=== PATIENT | female | born 1960 | race Caucasian/White ===

== ENCOUNTER 2017-03-12 15:20 | Emergency (ER) | payer OTHER ==
[2017-03-12 15:28] VITALS: BP 133/94
[2017-03-12] MEDS ORDERED: ERYT1OIN6 OP (15:36)
--- NOTE | 2017-03-12 15:36 | PHYS DOC ---
Past History Past Medical History: No Pertinent History Past Surgical History: No Surgical History Alcohol Use: None Drug Use: None Adult General Chief Complaint Chief Complaint: EYE PROBLEMS HPI HPI 56-year-old female presenting to the emergency department today with right eye swelling and redness. Started yesterday. It is improved with a warm cloth on her eye. She notices crusty drainage from the lower part of her eyelid. Location right eye. Duration intermittent. Alleviated by warm cloth. Review of systems is negative for chest pain shortness of breath nausea vomiting. All other review of systems is negative unless otherwise noted in history of present illness. ED course: 56-year-old female presenting with signs and symptoms suggestive of blepharitis. I recommended warm compresses gave her a topical antibiotic ointment to follow-up with her eye doctor today or tomorrow. T They were to return if their symptoms worsened or if they were concerned for any reason. Face -to-face discharge instructions and return precautions were given. Patient's questions were answered to their satisfaction. Patient is comfortable plan. Review of Systems Review of Systems SEE ABOVE. Physical Exam Physical Exam Constitutional: Well developed, well nourished, no acute distress, non-toxic appearance. [] HENT: Normocephalic, atraumatic, bilateral external ears normal, oropharynx moist, no oral exudates, nose normal. [] Eyes: PERRLA, EOMI, conjunctiva normal, no discharge. [] Neck: Normal range of motion, no tenderness, supple, no stridor. [] Cardiovascular:Heart rate regular rhythm, no murmur [] Lungs & Thorax: Bilateral breath sounds clear to auscultation [] Abdomen: Bowel sounds normal, soft, no tenderness, no masses, no pulsatile masses. [] Skin: Warm, dry, no erythema, no rash. [] Back: No tenderness, no CVA tenderness. [] Extremities: No tenderness, no cyanosis, no clubbing, ROM intact, no edema. [] Neurologic: Alert and oriented X 3, normal motor function, normal sensory function, no focal deficits noted. [] Psychologic: Affect normal, judgement normal, mood normal. [] EKG EKG [] Radiology/Procedures Radiology/Procedures [] Course & Med Decision Making Course & Med Decision Making Pertinent Labs and Imaging studies reviewed. (See chart for details) [] Dragon Disclaimer Dragon Disclaimer This chart was dictated in whole or in part using Voice Recognition software in a busy, high-work load, and often noisy Emergency Department environment. It may contain unintended and wholly unrecognized errors or omissions. Departure Departure: Impression: Primary Impression: Blepharitis Disposition: 01 HOME, SELF-CARE Condition: STABLE Referrals: OTTO RIZO MD (PCP) Patient Instructions: Blepharitis Additional Instructions: Thank you for allowing us to participate in your care today. Follow-up with your eye doctor today or tomorrow. If you do not have a primary care provider you can ask for a list of our primary care providers. Return to the emergency department you have any new or concerning findings. This should be evaluated by the primary care physician and any necessary consulting services for continued management within a few days after discharge. Return to emergency room if you have any new or concerning symptoms including but not limited to fever, chills, nausea, vomiting, intractable pain, any new rashes, chest pain, shortness of air, uncontrolled bleeding, difficulty breathing, and/or vision loss. Scripts Erythromycin Base (Erythromycin) 1 Gm Oint...g. 1 GM OP TID for 5 Days, [facility] Prov: DORA REYES MD 03/12/17 DORA REYES MD March 12, 2017 15:36
== END 2017-03-12 15:45 | disposition home or self-care (01) ==
LOC: ER 15:20
DX: H01.002 Unspecified blepharitis right lower eyelid (principal)
CPT/HCPCS: 99283

== ENCOUNTER → 2018-01-02 | Outpatient (CLI) | payer OTHER ==
[~2018-01-02] MED LIST: ERYT1OIN6 OP
--- NOTE | 2018-01-02 11:50 | RAD ---
DATE: 01/02/2018 EXAM: DIGITAL SCREEN BILAT W/CAD HISTORY: Routine screening COMPARISON: 12/19/2016 This study was interpreted with the benefit of Computerized Aided Detection (CAD). The breast parenchyma shows scattered fibroglandular densities. Breast parenchyma level B. FINDINGS: No new or enlarging breast densities are seen. There are benign type calcifications in both breasts. No suspicious microcalcifications have developed. IMPRESSION: Stable mammograms without evidence of malignancy. BI-RADS CATEGORY: 2 BENIGN FINDING(S) RECOMMENDED FOLLOW-UP: 12M 12 MONTH FOLLOW-UP PQRS compliance statement: Patient information was entered into a reminder system with a target due date for the next mammogram. Mammography is a sensitive method for finding small breast cancers, but it does not detect them all and is not a substitute for careful clinical examination. A negative mammogram does not negate a clinically suspicious finding and should not result in delay in biopsying a clinically suspicious abnormality. "Our facility is accredited by the [employer] Mammography Program."
== END | disposition home or self-care (01) ==
LOC: MAMMO 10:21
PROVIDERS: ATTEND Family Medicine
DX: Z12.31 Encounter for screening mammogram for malignant neoplasm of breast (principal)
CPT/HCPCS: 77067

== ENCOUNTER 2019-05-28 10:26 | Emergency (ER) | payer OTHER ==
[~2019-05-28] VITALS: Ht 170.2 cm; Wt 84.8 kg
[2019-05-28 10:39] VITALS: BP 147/89
[2019-05-28] MEDS ORDERED: MELO7.5T29 PO (11:13)
[2019-05-28] MEDS ORDERED: ORPH-16 PO (11:13)
--- NOTE | 2019-05-28 11:13 | PHYS DOC ---
Past History Past Medical History: Other Past Surgical History: Hysterectomy, Other Additional Past Surgical Histo: nerve ablation Smoking: Cigarettes Alcohol Use: Occasionally Drug Use: Marijuana Adult General Chief Complaint Chief Complaint: HIP PAIN HPI HPI Patient is a 58-year-old female presents with right hip, back, and thigh pain. Increased pain with movement. This started approximately week ago. Started after her usual activities of daily lifting to include rotational movement to get groceries into and out of the car. No weakness or numbness. Increased pain with movement. Pain is moderate to severe. No pain below the knee. It extends as a band from her hip region around the front of the leg. No burning. No rash. She was seen by her primary care physician 4 days ago and given Toradol and a steroid shot which did not significantly improved pain. She has had no significant relief with home ibuprofen and Naprosyn.[] Review of Systems Review of Systems Constitutional: Denies fever or chills [] Eyes: Denies change in visual acuity, redness, or eye pain [] HENT: Denies nasal congestion or sore throat [] Respiratory: Denies cough or shortness of breath [] Cardiovascular: No chest pain or palpitations[] GI: Denies abdominal pain, nausea, vomiting, bloody stools or diarrhea [] : Denies dysuria or hematuria [] Musculoskeletal: See history of present illness[] Integument: Denies rash or skin lesions [] Neurologic: Denies headache, focal weakness or sensory changes [] Endocrine: Denies polyuria or polydipsia [] All other systems were reviewed and found to be within normal limits, except as documented in this note. Allergies Allergies Allergies Coded Allergies Type Severity Reaction Last Updated Verified Bleach (Sodium Hypochlorite) Allergy Unknown rash 03/12/17 Yes adhesive Allergy Unknown 03/12/17 Yes celecoxib Allergy Unknown agitation 03/12/17 Yes diphenhydramine Allergy Unknown itching 03/12/17 Yes fentanyl Allergy Unknown patches cause rash 03/12/17 Yes hydrocodone Allergy Unknown itching 03/12/17 Yes hydromorphone Allergy Unknown itching 03/12/17 Yes morphine Allergy Unknown itching 03/12/17 Yes naproxen Allergy Unknown 03/12/17 Yes pramipexole Allergy Unknown itching 03/12/17 Yes propoxyphene Allergy Unknown itching 03/12/17 Yes tizanidine Allergy Unknown itching 03/12/17 Yes vancomycin Allergy Unknown n/v 03/12/17 Yes varenicline Allergy Unknown rash 03/12/17 Yes zolpidem Allergy Unknown migraine 03/12/17 Yes Uncoded Allergies Type Severity Reaction Last Updated Verified elastic Allergy Unknown rash 03/12/17 Physical Exam Physical Exam Constitutional: Well developed, well nourished, no acute distress, non-toxic kendall earance. [] HENT: Normocephalic, atraumatic, bilateral external ears normal, oropharynx moist, no oral exudates, nose normal. [] Eyes: PERRLA, EOMI, conjunctiva normal, no discharge. [] Neck: Normal range of motion, no tenderness, supple, no stridor. [] Cardiovascular:Heart rate regular rhythm, no murmur [] Lungs & Thorax: Bilateral breath sounds clear to auscultation [] Abdomen: Bowel sounds normal, soft, no tenderness, no masses, no pulsatile masses. [] Skin: Warm, dry, no erythema, no rash. [] Back: Tender to palpation over the sciatic notch. This does re-create the pain. Gait is limited by pain, but there is no foot drop. Patient is distally neurovascularly intact with DTRs are 2 over 4 and symmetric in the patella and Achilles. no CVA tenderness. [] Extremities: No tenderness, no cyanosis, no clubbing, ROM intact, no edema. [] Neurologic: Alert and oriented X 3, normal motor function, normal sensory function, no focal deficits noted. [] Psychologic: Affect normal, judgement normal, mood normal. [] Current Patient Data Vital Signs Vital Signs Date Time Temp Pulse Resp B/P (MAP) Pulse Ox O2 Delivery O2 Flow Rate FiO2 05/28/19 10:39 98.1 87 18 93 Room Air EKG EKG [] Radiology/Procedures Radiology/Procedures [] Course & Med Decision Making Course & Med Decision Making Pertinent Labs and Imaging studies reviewed. (See chart for details) Medical decision making: Patient appears to have sciatica. There is no evidence of a fracture, dislocation, nor neurologic or vascular compromise. ED course: Patient arrived, was placed in bed, and tolerated exam well. She was able to ambulate. She was given Toradol in the emergency department. Additional modalities for self/home therapy to include "pigeon pose" from yoga" as well as lacrosse ball therapy were discussed. Patient voiced understanding. All questions were answered. She was discharged in improved condition.[] Dragon Disclaimer Dragon Disclaimer This electronic medical record was generated, in whole or in part, using a voice recognition dictation system. Departure Departure: Impression: Primary Impression: Sciatica Disposition: HOME, SELF-CARE Condition: IMPROVED Referrals: OTTO RIZO MD (PCP) Follow-up in 2 days Patient Instructions: Sciatica with [facility] Additional Instructions: Follow-up with your regular doctor in 2 days. Perform "pigeon pose" from yoga as discussed. You can perform this while laying in bed. Lacrosse ball therapy: Tight or irritated glute muscles can cause pain and discomfort in the low back and hip region. Relieving tension in the buttocks area will not only feel good, but it also allows for greater flexibility in the hips and back. Stand with your back against a wall with the lacrosse ball between the wall and the meaty area of your glutes. Move up and down and side to side until you find a tender spot. Relax your weight into the wall, allowing the ball to apply pressure on this area. Hold this for 30 seconds, or until you feel the pain subside. Repeat on other side. Return to the ER if worsening pain, weakness, loss of bowel or bladder control, or any other concerns. Scripts Orphenadrine Citrate (ORPHENADRINE CITRATE) 100 Mg Tablet.er 100 MG PO BID for BACK PAIN, #20 TAB.SR Prov: PAUL DOE DO 05/28/19 Meloxicam (MELOXICAM) 7.5 Mg Tablet 7.5 MG PO DAILY for PAIN, #20 TAB Prov: PAUL DOE DO 05/28/19 Problem Qualifiers Primary Impression: Sciatica Laterality: right Qualified Codes: M54.31 - Sciatica, right side PAUL DOE DO May 28, 2019 11:13
[2019-05-28] MEDS ORDERED: KETOROLAC 30 MG/ML VIAL. IM ONE (11:30)
== END 2019-05-28 11:23 | disposition home or self-care (01) ==
LOC: ER 10:26
DX: M54.31 Sciatica, right side (principal); F17.210 Nicotine dependence, cigarettes, uncomplicated; Z90.710 Acquired absence of both cervix and uterus; Z88.8 Allergy status to other drugs, medicaments and biological substances; Z88.5 Allergy status to narcotic agent; Z88.1 Allergy status to other antibiotic agents
CPT/HCPCS: 96372; 99283; J1885

== ENCOUNTER 2019-07-26 14:11 | Emergency (ER) | payer OTHER ==
[~2019-07-26] VITALS: Ht 170.2 cm; Wt 84.8 kg
[~2019-07-26 14:11] MED LIST changes: +MELO7.5T29 PO; +ORPH-16 PO
[2019-07-26 14:21] VITALS: BP 130/80
[2019-07-26] MEDS ORDERED: ACET-704 PO (14:36)
--- NOTE | 2019-07-26 14:37 | PHYS DOC ---
Past History Past Medical History: Other Additional Past Medical Histor: Fibromyalgia Past Surgical History: Hysterectomy, Other Additional Past Surgical Histo: nerve ablation Smoking: Cigarettes Alcohol Use: Occasionally Drug Use: Marijuana Adult General Chief Complaint Chief Complaint: TOE PROBLEM HPI HPI 58-year-old female with past medical history of fibromyalgia and neuropathy presents with report of striking her left middle toe on door jam Saturday night. Reports her toenail lifted up and there was some bleeding underneath. Reports continued throbbing to toe. Reports worse with stepping off the ball of her foot. Patient reports she has been cleaning it with hydrogen peroxide and placing antibiotic ointment with limited improvement. Review of Systems Review of Systems Constitutional: Denies fever or chills Musculoskeletal: Reports toe pain and toenail avulsion injury Integument: Reports swelling Complete systems were reviewed and found to be within normal limits, except as documented in this note. Allergies Allergies Allergies Coded Allergies Type Severity Reaction Last Updated Verified Bleach (Sodium Hypochlorite) Allergy Unknown rash 03/12/17 Yes adhesive Allergy Unknown 03/12/17 Yes celecoxib Allergy Unknown agitation 03/12/17 Yes diphenhydramine Allergy Unknown itching 03/12/17 Yes fentanyl Allergy Unknown patches cause rash 03/12/17 Yes hydrocodone Allergy Unknown itching 03/12/17 Yes hydromorphone Allergy Unknown itching 03/12/17 Yes morphine Allergy Unknown itching 03/12/17 Yes naproxen Allergy Unknown 03/12/17 Yes pramipexole Allergy Unknown itching 03/12/17 Yes propoxyphene Allergy Unknown itching 03/12/17 Yes tizanidine Allergy Unknown itching 03/12/17 Yes vancomycin Allergy Unknown n/v 03/12/17 Yes varenicline Allergy Unknown rash 03/12/17 Yes zolpidem Allergy Unknown migraine 03/12/17 Yes Uncoded Allergies Type Severity Reaction Last Updated Verified elastic Allergy Unknown rash 03/12/17 Physical Exam Physical Exam Constitutional: Well developed, well nourished, no acute distress, non-toxic kendall earance HENT: Normocephalic, atraumatic Eyes: Conjunctiva normal, no discharge Neck: Normal range of motion, no tenderness, supple Cardiovascular: left DP and PT +2 pulses, CR < 2 sec Skin: Warm, dry, thick toenails, partially avulsed left middle toenail, toenail still attached Extremities ROM intact,left middle toenail with pain at base, no bony tenderness Neurologic: Alert and oriented X 3, no focal deficits noted Psychologic: Affect normal, judgement normal Current Patient Data Vital Signs Vital Signs Date Time Temp Pulse Resp B/P (MAP) Pulse Ox O2 Delivery O2 Flow Rate FiO2 07/26/19 14:21 98.1 92 18 93 Room Air EKG EKG [] Radiology/Procedures Radiology/Procedures [] Course & Med Decision Making Course & Med Decision Making Patient presents with report of stubbed toe with partial traumatic toenail avulsion. Distal phalanx of middle toe without bony tenderness. Likely injury just to toenail. Toenail not completely avulsed and therefore left to allow nail to grow back. Patient initially requesting to have toenail removed. Advised it would be better to allow to heal and not remove nail. Wound cleaned and dressed. Post op shoe applied. Pain medications prescribed. Patient stable for discharge with outpatient follow-up with PCP/group account director. Discussed findings and plan with patient, who acknowledges understanding and agreement. Dragon Disclaimer Dragon Disclaimer This electronic medical record was generated, in whole or in part, using a voice recognition dictation system. Splinting Splinting : Location: Left foot Pre-Made Type: Post op shoe Pre-Proc Neuro Vasc Exam: normal Post-Proc Neuro Vasc Exam: normal, unchanged from pre-exam Departure Departure: Impression: Primary Impression: Nail avulsion of toe Disposition: 01 HOME, SELF-CARE Condition: STABLE Referrals: OTTO RIZO MD (PCP) Patient Instructions: Nail Avulsion Injury Additional Instructions: Do not soak your wound. You may shower. Clean wound daily with soap and water. Change dressing 2 times daily. Use over the counter antibiotic ointment with each dressing change. Scripts Acetaminophen With Codeine (TYLENOL WITH CODEINE #3 TABLET) 1 Each Tablet 1 TAB PO PRN Q6HRS PRN for pain MDD 4 Tablet(s), #10 TAB 0 Refills Prov: MARC CHILEL DO 07/26/19 Problem Qualifiers Primary Impression: Nail avulsion of toe Encounter type: initial encounter Qualified Codes: S91.209A - Unspecified open wound of unspecified toe(s) with damage to nail, initial encounter MARC CHILEL DO Jul 26, 2019 14:37
[2019-07-26] MEDS ORDERED: NEOMY/BACITR/POLYMYXIN OINT PACKET. TP ONE (14:45)
== END 2019-07-26 14:55 | disposition home or self-care (01) ==
LOC: ER 14:11
DX: S91.205A Unspecified open wound of left lesser toe(s) with damage to nail, initial encounter (principal); M79.7 Fibromyalgia; F17.210 Nicotine dependence, cigarettes, uncomplicated; Z88.8 Allergy status to other drugs, medicaments and biological substances; Z88.1 Allergy status to other antibiotic agents; Z88.5 Allergy status to narcotic agent; W22.8XXA Striking against or struck by other objects, initial encounter; Y93.89 Activity, other specified; Y92.89 Other specified places as the place of occurrence of the external cause; Y99.8 Other external cause status
CPT/HCPCS: 99283

== ENCOUNTER 2019-09-07 10:42 | Emergency (ER) | payer OTHER ==
[~2019-09-07] VITALS: Ht 172.7 cm; Wt 89.1 kg
[~2019-09-07 10:42] MED LIST changes: +ACET-704 PO
--- NOTE | 2019-09-07 10:57 | EKG ---
[address] [address] Test Date: 2019-09-07 Test Time: 10:54:33 Pat Name: GONZÁLEZ THOMAS Department: Room: Gender: F Dumpman: B[place] : 1960 Requested By: JESSICA CLARKE Order Number: [id number] Reading MD: Measurements Intervals [place] Rate: 87 P: 59 AL: 152 QRS: 10 QRSD: 82 T: 44 QT: 362 QTc: 436 Interpretive Statements SINUS RHYTHM LEFT ATRIAL ABNORMALITY ABNORMAL ECG RI6.01 Compared to ECG 08/31/2012 16:51:03 Atrial abnormality now present Left-axis deviation no longer present
[2019-09-07 11:08] LABS: BASO # 0.1 x10^3/uL (0.0-0.2); BASO % 1 % (0-3); EOS # 0.3 x10^3/uL (0.0-0.7); EOS % 4 % (0-3); HEMATOCRIT 49.8 % (36.0-47.0); HEMOGLOBIN 17.1 g/dL (12.0-15.5); LYMPH % 28 % (24-48); MEAN CORPUSCULAR HEMOGLOBIN 34 pg (25-35); MEAN CORPUSCULAR HGB CONC 34 g/dL (31-37); MEAN CORPUSCULAR VOLUME 98 fL (79-100); MONO # 0.5 x10^3/uL (0.0-1.1); MONO % 7 % (0-9); NEUT # 4.2 x10^3uL (1.8-7.7); NEUT % 60 % (31-73); PLATELET COUNT 170 x10^3/uL (140-400); RED BLOOD COUNT 5.08 x10^6/uL (3.50-5.40); RED CELL DISTRIBUTION WIDTH 14.1 % (11.5-14.5); WHITE BLOOD COUNT 7.1 x10^3/uL (4.0-11.0)
--- NOTE | 2019-09-07 11:24 | RAD ---
CT HEAD WO CONTRAST History: Left-sided weakness Comparison: August 31, 2012 Technique: Noncontrast CT imaging was performed of the head. Exposure: One or more of the following individualized dose reduction techniques were utilized for this examination: 1. Automated exposure control 2. Adjustment of the mA and/or kV according to patient size 3. Use of iterative reconstruction technique. Findings: There is now a large (approximate 6 cm) area of low density centered in the right frontal lobe adjacent, also apparently separate smaller focus more posteriorly in the parasagittal right parietal region. There is also a small focus of lower density of the left parasagittal frontal parietal region about 1.3 cm. There is right to left midline shift of about 0.6 cm. Ventricles are not significantly dilated. No acute hyperdense intracranial hemorrhage is identified. Mastoid air cells are aerated. Visualized paranasal sinuses are aerated. No acute calvarial abnormality is identified. Impression: 1. There is large area of low density centered in the right frontal lobe, smaller foci in the right parasagittal parietal and the left parasagittal frontal parietal regions. Primary concern would be for underlying parenchymal masses/metastatic disease and vasogenic edema, especially given the small focus on the left. Sequela of subacute infarcts is considered less likely. There is mild right to left midline shift. Critcal Results were discussed with JESSICA CLARKE at 09/07/2019 11:19 AM. Electronically signed by: Jatin Crawford MD (09/07/2019 11:21 AM) [id number]
[2019-09-07 11:38] LABS: ALBUMIN 3.6 g/dL (3.4-5.0); ALBUMIN/GLOBULIN RATIO 0.9 (1.0-1.7); CALCIUM 8.9 mg/dL (8.5-10.1); CREATININE 0.7 mg/dL (0.6-1.0); GFR 85.4; POTASSIUM 3.9 mmol/L (3.5-5.1); TOTAL BILIRUBIN 0.4 mg/dL (0.2-1.0); TOTAL PROTEIN 7.5 g/dL (6.4-8.2)
--- NOTE | 2019-09-07 11:38 | PHYS DOC ---
Past History Past Medical History: Asthma, Depression, Other Additional Past Medical Histor: Fibromyalgia Past Surgical History: Hysterectomy, Other Additional Past Surgical Histo: nerve ablation Smoking: Cigarettes Additional Smoking Information: PACK/DAY Alcohol Use: Occasionally Drug Use: Marijuana Adult General Chief Complaint Chief Complaint: DIZZY/LIGHT HEADED [facility] HPI Patient is a 59-year-old female who presents with complaint of approximately 3 month history of left-sided weakness where she has also had some tremor to her left hand. Patient also states that she has had some weakness in her legs and today the weakness had gotten so severe that she was not able to stand up and walk. She states the weakness is greater in her left leg and she states that it just feels like her legs are wobbly and they're not able to support her. She denies any headaches. She also denies any speech deficit or facial droop.[] Review of Systems Review of Systems Constitutional: Denies fever or chills [] Respiratory: Denies cough or shortness of breath [] Cardiovascular: No additional information not addressed in HPI [] GI: Denies abdominal pain, nausea, vomiting or diarrhea [] Integument: Denies rash or skin lesions [] Neurologic: Positive left sided weakness[] All other systems were reviewed and found to be within normal limits, except as documented in this note. Allergies Allergies Allergies Coded Allergies Type Severity Reaction Last Updated Verified Bleach (Sodium Hypochlorite) Allergy Unknown rash 03/12/17 Yes adhesive Allergy Unknown 03/12/17 Yes celecoxib Allergy Unknown agitation 03/12/17 Yes diphenhydramine Allergy Unknown itching 03/12/17 Yes fentanyl Allergy Unknown patches cause rash 03/12/17 Yes hydrocodone Allergy Unknown itching 03/12/17 Yes hydromorphone Allergy Unknown itching 03/12/17 Yes morphine Allergy Unknown itching 03/12/17 Yes naproxen Allergy Unknown 03/12/17 Yes pramipexole Allergy Unknown itching 03/12/17 Yes propoxyphene Allergy Unknown itching 03/12/17 Yes tizanidine Allergy Unknown itching 03/12/17 Yes vancomycin Allergy Unknown n/v 03/12/17 Yes varenicline Allergy Unknown rash 03/12/17 Yes zolpidem Allergy Unknown migraine 03/12/17 Yes Uncoded Allergies Type Severity Reaction Last Updated Verified elastic Allergy Unknown rash 03/12/17 Physical Exam Physical Exam Constitutional: Well developed, well nourished, no acute distress, non-toxic appearance. [] HENT: Normocephalic, atraumatic, bilateral external ears normal, oropharynx moist, no oral exudates, nose normal. [] Eyes: PERRLA, EOMI, conjunctiva normal, no discharge. [] Neck: Normal range of motion, no tenderness, supple, no bruit. [] Cardiovascular: Regular rate and rhythm[] Lungs & Thorax: Bilateral breath sounds clear to auscultation [] Abdomen: Bowel sounds normal, soft, no tenderness. [] Skin: Warm, dry, no erythema, no rash. [] Extremities: No tenderness, no cyanosis, no clubbing, ROM intact, no edema. [] Neurologic: Alert and oriented X 3, mild decreased bulb assembler strength and left hand at a 4 out of 5, normal sensory function, no other focal deficits noted. [] Current Patient Data Vital Signs Vital Signs Date Time Temp Pulse Resp B/P (MAP) Pulse Ox O2 Delivery O2 Flow Rate FiO2 09/07/19 10:45 98.2 88 24 94 Room Air Lab Results Laboratory Tests Test 09/07/19 10:50 White Blood Count 7.1 x10^3/uL (4.0-11.0) Red Blood Count 5.08 x10^6/uL (3.50-5.40) Hemoglobin 17.1 g/dL (12.0-15.5) H Hematocrit 49.8 % (36.0-47.0) H Mean Corpuscular Volume 98 fL (79-100) Mean Corpuscular Hemoglobin 34 pg (25-35) Mean Corpuscular Hemoglobin Concent 34 g/dL (31-37) Red Cell Distribution Width 14.1 % (11.5-14.5) Platelet Count 170 x10^3/uL (140-400) Neutrophils (%) (Auto) 60 % (31-73) Lymphocytes (%) (Auto) 28 % (24-48) Monocytes (%) (Auto) 7 % (0-9) Eosinophils (%) (Auto) 4 % (0-3) H Basophils (%) (Auto) 1 % (0-3) Neutrophils # (Auto) 4.2 x10^3uL (1.8-7.7) Lymphocytes # (Auto) 2.0 x10^3/uL (1.0-4.8) Monocytes # (Auto) 0.5 x10^3/uL (0.0-1.1) Eosinophils # (Auto) 0.3 x10^3/uL (0.0-0.7) Basophils # (Auto) 0.1 x10^3/uL (0.0-0.2) EKG EKG EKG demonstrates normal sinus rhythm with rate of 87.[] Radiology/Procedures Radiology/Procedures [] Impressions: PROCEDURE: CT HEAD WO CONTRAST CT HEAD WO CONTRAST History: Left-sided weakness Comparison: August 31, 2012 Technique: Noncontrast CT imaging was performed of the head. Exposure: One or more of the following individualized dose reduction techniques were utilized for this examination: 1. Automated exposure control 2. Adjustment of the mA and/or kV according to patient size 3. Use of iterative reconstruction technique. Findings: There is now a large (approximate 6 cm) area of low density centered in the right frontal lobe adjacent, also apparently separate smaller focus more posteriorly in the parasagittal right parietal region. There is also a small focus of lower density of the left parasagittal frontal parietal region about 1.3 cm. There is right to left midline shift of about 0.6 cm. Ventricles are not significantly dilated. No acute hyperdense intracranial hemorrhage is identified. Mastoid air cells are aerated. Visualized paranasal sinuses are aerated. No acute calvarial abnormality is identified. Impression: 1. There is large area of low density centered in the right frontal lobe, smaller foci in the right parasagittal parietal and the left parasagittal frontal parietal regions. Primary concern would be for underlying parenchymal masses/metastatic disease and vasogenic edema, especially given the small focus on the left. Sequela of subacute infarcts is considered less likely. There is mild right to left midline shift. Critcal Results were discussed with JESSICA LCARKE at 09/07/2019 11:19 AM. Electronically signed by: Snehal Rodriguez MD (09/07/2019 11:21 AM) [id number] DICTATED AND SIGNED BY: SNEHAL RODRIGUEZ MD DATE: 09/07/19 112 Course & Med Decision Making Course & Med Decision Making Pertinent Labs and Imaging studies reviewed. (See chart for details) Patient moved to room upon arrival was evaluated by ER medical staff after which blood work was obtained and patient sent for CT the brain without contrast. Upon completion of workup, findings were discussed with Dr. Rizo, patient's primary care provider, and given findings of CT, he feels that patient would best be served by being transferred to [facility]. transfer Center was contacted and Dr. Chau will accept patient in transfer. Dragon Disclaimer Dragon Disclaimer This electronic medical record was generated, in whole or in part, using a voice recognition dictation system. Departure Departure: Impression: Primary Impression: Left-sided weakness Additional Impression: Abnormal CT of brain Disposition: XFER SHT-TRM HOSP Condition: GOOD Referrals: OTTO RIZO MD (PCP) Problem Qualifiers JESSICA CLARKE Jr. DO Sep 07, 2019 11:38
[2019-09-07 11:46] LABS: BACTERIA,URINE 0 /HPF (0-FEW); BILIRUBIN,URINE NEG (NEG); CLARITY,URINE CLEAR; COLOR,URINE YELLOW; GLUCOSE,URINE NEG (NEG); NITRITE,URINE NEG (NEG); RBC,URINE OCC /HPF (0-2); SQUAMOUS EPITHELIAL CELL,UR OCC /LPF; UROBILINOGEN,URINE 0.2 mg/dL (0.2 mg/dL)
[2019-09-07 12:20] VITALS: BP 115/74
== END 2019-09-07 15:55 | disposition short-term general hospital (02) ==
LOC: ER 10:42
DX: R53.1 Weakness (principal); R93.0 Abnormal findings on diagnostic imaging of skull and head, not elsewhere classified; M79.7 Fibromyalgia; J45.909 Unspecified asthma, uncomplicated; F17.210 Nicotine dependence, cigarettes, uncomplicated; Z88.8 Allergy status to other drugs, medicaments and biological substances; Z88.5 Allergy status to narcotic agent; Z88.1 Allergy status to other antibiotic agents
CPT/HCPCS: 36415; 70450; 80053; 81001; 85025; 93005; 99285-25